=== PATIENT | female | born 1975 | race Caucasian/White ===

== ENCOUNTER → 2018-02-15 | Outpatient (CLI) | payer SELFPAY ==
--- NOTE | 2018-02-15 17:52 | P.STRESS ---
- Stress Test Note Stress Test Results/Findings: Exam Performed: stress test Exam Date: 02/15/18 Reason for Exam: Chest Pain Height: 5 ft Weight: 57.153 kg Protocol: Jairo Stage: 3 Duration of Exercise: 9:30 Resting Heart Rate: 77 Resting Blood Pressure: 115/76 Maximum Achieved Heart Rate: 166 Maximum Achieved Blood Pressure: 151/74 85% PMHR: 150 100% PMHR: 176 METS: 11.1 Technologist Comment: Stress Test Results/Findings: This is a 42-year-old female with history of operations smoking being evaluated for symptoms of chest pain. Stress data Jose baseline EKG showed sinus rhythm with normal MD interval and QRS duration. Blood pressure at rest is 115/76 with a pulse rate of 77. Patient walked on the Jairo protocol for 9 minutes and 30 seconds achieving a maximal heart rate of 166 with a blood pressure 135/74. EKGs taken during and after the exercise did not reveal any significant changes to suggest ischemia. Final impression: #1. Negative stress test #2. Excellent exercise capacity # 3. No arrhythmias detected #4 patient did not express any chest pain.
--- NOTE | 2018-02-20 10:32 | EST ---
Stress Test Results/Findings: Exam Performed: stress test Exam Date: 02/15/18 Reason for Exam: Chest Pain Height: 5 ft Weight: 57.153 kg Protocol: Jairo Stage: 3 Duration of Exercise: 9:30 Resting Heart Rate: 77 Resting Blood Pressure: 115/76 Maximum Achieved Heart Rate: 166 Maximum Achieved Blood Pressure: 151/74 85% PMHR: 150 100% PMHR: 176 METS: 11.1 Technologist Comment: Stress Test Results/Findings: This is a 42-year-old female with history of operations smoking being evaluated for symptoms of chest pain. Stress data Jose baseline EKG showed sinus rhythm with normal AR interval and QRS duration. Blood pressure at rest is 115/76 with a pulse rate of 77. Patient walked on the Jairo protocol for 9 minutes and 30 seconds achieving a maximal heart rate of 166 with a blood pressure 135/74. EKGs taken during and after the exercise did not reveal any significant changes to suggest ischemia. Final impression: #1. Negative stress test #2. Excellent exercise capacity # 3. No arrhythmias detected #4 patient did not express any chest pain. SHAINA
== END | disposition home or self-care (01) ==
LOC: RADNMMAIN 10:36
PROVIDERS: ATTEND Family Medicine
DX: R07.89 Other chest pain (principal); R10.13 Epigastric pain
CPT/HCPCS: 93017

== ENCOUNTER → 2020-03-25 | Outpatient (CLI) | payer BC | END | disposition home or self-care (01) | LOC: LABWHC1 09:15 | PROVIDERS: ATTEND Family Medicine | DX: Z20.89 Contact with and (suspected) exposure to other communicable diseases (principal) | CPT/HCPCS: U0003; C9803 ==

== ENCOUNTER → 2021-02-28 | Outpatient (CLI) | payer BC ==
--- NOTE | 2021-03-01 07:54 | CT ---
EXAMINATION TYPE: CT abdomen pelvis w con DATE OF EXAM: 02/28/2021 COMPARISON: None HISTORY: Lower abdominal pain LT side, radiating to front. CT DLP: 447.10 mGycm CONTRAST: CT scan of the abdomen and pelvis is performed with Oral Contrast and with IV Contrast, patient injec miguel with 100 mL of Isovue 300. FINDINGS: LUNG BASES-: No visible nodule. No infiltrate. LIVER/GB: No calcified gallstones. No space occupying hepatic lesion. Biliary tree is of normal ca liber. PANCREAS: No inflammation. No distinct mass. SPLEEN: No splenic enlargement. No lesion seen. ADRENALS: No nodule. No thickening. KIDNEYS/BLADDER: No hydronephrosis. No nephrolithiasis. Renal cystic changes noted. Urinary bladder grossly unremarkable. BOWEL: Normal appendix. Normal bowel caliber. No inflammation. GENITAL ORGANS: No gross abnormality. LYMPH NODES: No greater than 1cm abdominal or pelvic lymph nodes are appreciated. AORTA: No significant abnormality. OSSEOUS STRUCTURES: No significant abnormality is seen. OTHER: No significant additional abnormality is seen. IMPRESSION: 1. No distinct abnormality to account for the patient's symptoms.
== END | disposition home or self-care (01) ==
LOC: RADCTMAIN 16:31
PROVIDERS: ATTEND Family Medicine
DX: R10.30 Lower abdominal pain, unspecified (principal)
CPT/HCPCS: 74177; Q9967

== ENCOUNTER 2021-04-13 08:17 | Day surgery (SDC) | payer BC ==
[2021-04-11 13:25] VITALS: BMI 27.3
[~2021-04-13 08:17] MED LIST: LACTATED RINGERS 1,000 ML IV SCH
[2021-04-13] MEDS ORDERED: LIDOCAINE 1% (10MG/ML) FOR IV START INTRADERMA ONE (09:10)
[2021-04-13 09:24] VITALS: RESP 16; TEMP 97.6
[2021-04-13] MEDS ORDERED: LIDOCAINE 1% INJ 10MG/ML (20 ML MDV) ONE (09:30)
[2021-04-13] MEDS ORDERED: PROPOFOL 10 MG/ML 20 ML VIAL IV ONE (09:30)
--- NOTE | 2021-04-13 09:55 | P.PCN ---
Date of Procedure: 04/13/21 Procedure(s) Performed: BRIEF HISTORY: Patient is a 46-year-old pleasant female scheduled for an elective colonoscopy as a part of evaluation of left sided abdominal pain for the last 6 weeks duration. PROCEDURE PERFORMED: Colonoscopy and polypectomy. PREOPERATIVE DIAGNOSIS: Left-sided abdominal pain of 6 weeks duration. IV sedation per Anesthesia. PROCEDURE: After informed consent was obtained, the patient, was brought into the endoscopy unit. IV sedation was administered by Anesthesia under continuous monitoring. Digital rectal examination was normal. Initially the Olympus CF-160 flexible video pediatric colonoscope was then inserted in the rectum, gradually advanced into the cecum with [id number] difficulty. Careful examination was performed as the scope was gradually being withdrawn. Ileocecal valve and the appendiceal orifice were visualized and appeared normal. Prep was exce llent. Mucosa of the cecum had a 5 limited polyp that was removed by snare polypectomy. Rest of, ascending colon, transverse colon, descending colon, sigmoid colon, and rectum appeared normal. Scattered sigmoid diverticulosis seen. Retroflexion was performed in the rectum and no lesions were seen. The patient tolerated the procedure well. IMPRESSION: 5 mm cecal polyp status post polypectomy Moderate sigmoid diverticulosis. RECOMMENDATIONS: Findings of this examination were discussed with the patient is a family. She was advised to follow with the biopsy results and if the biopsy reveals adenoma have a repeat colonoscopy in 5 years. She will continue with a high-fiber diet and fiber supplements a regular basis
[2021-04-13 10:20] VITALS: BP 105/66; PULSE 69
== END 2021-04-13 10:51 | disposition home or self-care (01) ==
LOC: ORWHC2ENDO 08:17
PROVIDERS: ATTEND Internal Medicine Gastroenterology
DX: K57.30 Diverticulosis of large intestine without perforation or abscess without bleeding (principal); D12.0 Benign neoplasm of cecum
CPT/HCPCS: 45385; 88305; J2001; J2704

== ENCOUNTER → 2023-06-14 | Outpatient (CLI) | payer BC ==
[2023-06-14 12:15] VITALS: BP 126/81; PULSE 85; RESP 18; TEMP 98.1
--- NOTE | 2023-06-14 12:27 | P.GSHP ---
History of Present Illness H&P Date: 06/14/23 Shena is a 48 year old white female seen for DR. Colin regarding itching of her left breast. She had a bilateral mammogram on 09-26-22 at [facility] imaging center in [place] which was called negative and repeat in 1 year recommended. She is here today with a complaint of left breast and itching in the nipple area in the past and left breast throbbing after flying. That was April 05, that has resolved. She had a lump under ler left arm in 2002 which was a lipoma. Does not have any new lumps masses or nodules of concern. She does have residual fullness at the site where a lipoma was removed in 2002. Is not complaining of any itching at this time. Never had any periods. 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 pregnancies: none menopause: post menopausal Surgical History: ganglion cyst left wrist right ovarian teratoma lipoma left arm Medical History: low vitamin D low energy Social History: nicotine: as above alcohol: 4-5 drinks/week drugs: none - Constitutional Constitutional: Denies chills, Denies fever - EENT Eyes: denies blurred vision, denies pain Ears: left: tinnitus, deny: decreased hearing Ears, nose, mouth and throat: Denies headache, Denies sore throat - Breasts Breasts: bilateral: as per HPI - Cardiovascular Cardiovascular: Denies chest pain, Denies shortness of breath - Respiratory Respiratory: Denies cough, Denies 7 - Gastrointestinal Gastrointestinal: Denies abdominal pain, Denies diarrhea, Denies nausea, Denies vomiting - Genitourinary (Female) Genitourinary: Denies dysuria, Denies hematuria - Menstruation Menstruation: Reports as per HPI - Musculoskeletal Comment: right hip pain Musculoskeletal: Denies myalgias - Integumentary Comment: left breast itching Integumentary: Reports as per HPI, Reports pruritus - Neurological Neurological: Denies numbness, Denies weakness - Psychiatric Psychiatric: Denies anxiety, Denies depression - Endocrine Endocrine: Reports fatigue - Hematologic/Lymphatic Comment: none - Allergic/Immunologic Allergic/Immunologic: Reports as per HPI Past Medical History Additional Past Medical History / Comment(s): Diverticulitis History of Any Multi-Drug Resistant Organisms: None Reported Additional Past Surgical History / Comment(s): Right Ovarian cyst removal. Right wrist cyst removal. Left axilla cyst removal. skin CA removed from nose Additional Past Anesthesia/Blood Transfusion Reaction / Comment(s): patient "woke up during colonoscopy and felt everything" Past Psychological History: No Psychological Hx Reported Smoking Status: Current some day smoker Past Alcohol Use History: Occasional Past Drug Use History: None Reported - Past Family History Mother Family Medical History: No Reported History Medications and Allergies Home Medications Medication Instructions Recorded Confirmed Type Cholecalciferol [Vitamin D3 (125 125 mcg PO DAILY 06/14/23 06/14/23 History Mcg = 5000 Iu)] Magnesium 200 mg PO DAILY 06/14/23 06/14/23 History Vitamin B Complex 1 each PO DAILY 06/14/23 06/14/23 History buPROPion [Wellbutrin] 75 mg PO DAILY 06/14/23 06/14/23 History Allergies Allergy/AdvReac Type Severity Reaction Status Date / Time No Known Allergies Allergy Verified 06/14/23 12:02 Surgical - Exam - General no distress - Eyes normal ocular movement - ENT no hearing loss - Neck trachea midline - Respiratory normal respiratory effort, clear to auscultation - Cardiovascular Rhythm: regular Heart Sounds: normal: S1, S2 - Abdomen Abdomen: soft, non tender, no guarding, no rigid, no rebound - Integumentary normal turgor - Neurologic no disoriented, no combative - Musculoskeletal normal gait, normal posture - Psychiatric oriented to time, oriented to person, oriented to place, speech is normal, memory intact Breast Exam: BRA: 38DD Inspection: bilateral grade 2 ptosis inspection: right breast: Positional exam no dominant masses or nodules of concern Right axilla: No adenopathy of concern Left breast: Multiple positional exam no dominant masses or nodules of concern Left axilla: No adenopathy of concern, well-healed scar over the prior lipoma was removed with mild prominence Fungal infection under both breast Results Mammogram report reviewed from [facility] from which was read as negative; radiographs are not available Assessment and Plan Assessment: Impression: Itching of the left breast which has resolved Pain of the left breast which has resolved From the center left axilla and site of prior lipoma resection Bilateral mammogram reportedly negative from [facility] Plan: Abstain from caffeine/nicotine/chocolate Bilateral mammogram September 2023 with appointment If itching continues consider appointment with dermatology At this time there is nothing in the breast which would warrant interventional biopsy CC: Dr. Colin
== END ==
LOC: WWCWWP 11:01
PROVIDERS: ATTEND Surgery
DX: Z12.31 Encounter for screening mammogram for malignant neoplasm of breast (principal); F17.210 Nicotine dependence, cigarettes, uncomplicated; L29.9 Pruritus, unspecified; Z86.018 Personal history of other benign neoplasm; Z90.721 Acquired absence of ovaries, unilateral

== ENCOUNTER → 2023-09-10 | Outpatient (CLI) | payer BC ==
--- NOTE | 2023-09-10 17:35 | MM ---
Reason for Exam: Screening (asymptomatic). Patient History: Paternal aunt had ovarian cancer. Risk Values: Maribel 5 year model risk: 0.6%. NCI Lifetime model risk: 6.0%. Tissue Density: The breast tissue is heterogeneously dense. This may lower the sensitivity of mammography. Findings: Analyzed By CAD. Possible subtle distortion centrally in either breast on the CC view, middle depth. This may represent superimposition shadow but further evaluation is recommended. Otherwise, no significant change. Overall Assessment: Incomplete: need additional imaging evaluation, BI-RAD 0 Management: Special View Mammogram of both breasts. Diagnostic Breast Ultrasound of both breasts. Additional views to include spot 3-D CC, 3-D CC rolled, and 3-D lateral views. Targeted bilateral breast ultrasounds if any persisting abnormality. [facility] will attempt to contact patient to return for supplemental views and ultrasound if indicated. Electronically signed and approved by: Laverne Estrada M.D. Radiologist
== END | disposition home or self-care (01) ==
LOC: RADMAMWWP 09:06
PROVIDERS: ATTEND Surgery
DX: Z12.31 Encounter for screening mammogram for malignant neoplasm of breast (principal); Z80.41 Family history of malignant neoplasm of ovary
CPT/HCPCS: 77063; 77067

== ENCOUNTER → 2023-09-14 | Outpatient (CLI) | payer BC ==
--- NOTE | 2023-09-14 10:41 | MM ---
Reason for Exam: Follow-up at short interval from prior study. Last screening mammogram was performed less than 1 month ago. Patient History: Paternal aunt had ovarian cancer. Risk Values: Maribel 5 year model risk: 0.6%. NCI Lifetime model risk: 6.0%. Prior Study Comparison: 09/10/2023 Bilateral MG 3D screening mammo w/cad, [facility]. Tissue Density: The breast tissue is heterogeneously dense. This may lower the sensitivity of mammography. Findings: Analyzed By CAD. Under compression no persistent distortion is evident. Old views and mediolateral views appear unremarkable. No suspicious groups of microcalcifications, spiculated or lobular masses, architectural distortion or other secondary signs of malignancy are mammographically apparent. Overall Assessment: Probably benign, BI-RAD 3 Management: Diagnostic Mammogram of both breasts in 6 months. A negative mammogram report should not preclude additional follow up of suspicious palpable abnormalities. Patient should continue monthly self breast exam. A clinical breast exam by your physician is recommended on an annual basis and results should be correlated with mammographic findings. Electronically signed and approved by: Kenneth Alcaraz D.O. Radiologis
== END | disposition home or self-care (01) ==
LOC: RADMAMWWP 10:10
PROVIDERS: ATTEND Surgery
DX: R92.333 Mammographic heterogeneous density, bilateral breasts (principal)
CPT/HCPCS: 77062; 77066

== ENCOUNTER → 2023-12-12 | Outpatient (CLI) | payer BC | END | disposition home or self-care (01) | LOC: LABWHC1 09:03 | PROVIDERS: ATTEND Family Medicine | DX: R07.89 Other chest pain (principal) | CPT/HCPCS: 36415; 93005 ==

== ENCOUNTER → 2024-05-23 | Outpatient (CLI) | payer BC ==
--- NOTE | 2024-05-23 11:23 | MM ---
Reason for Exam: Follow-up at short interval from prior study. Last screening mammogram was performed 8 month(s) ago. Patient History: Patient has no children. Risk Values: Maribel 5 year model risk: 1.0%. NCI Lifetime model risk: 8.9%. Prior Study Comparison: 09/10/2023 Bilateral MG 3D screening mammo w/cad, [facility]. 09/14/2023 Bilateral MG 3D work up w/cad NAVA, [facility]. Tissue Density: The breasts are heterogeneously dense, which may obscure small masses. Findings: Analyzed By CAD. The pattern is symmetrical. No significant interval changes are evident. No persistent architectural distortion present. No suspicious groups of microcalcifications, spiculated or lobular masses, architectural distortion or other secondary signs of malignancy are mammographically apparent. Overall Assessment: Benign, BI-RAD 2 Management: Screening Mammogram of both breasts in 1 year. A negative mammogram report should not preclude additional follow up of suspicious palpable abnormalities. Patient should continue monthly self breast exam. A clinical breast exam by your physician is recommended on an annual basis and results should be correlated with mammographic findings. Note on Maribel scores and lifetime risk: 1. A Maribel score greater than 3% is considered moderate risk. If this is the case, consider specialist referral to assess eligibility for a risk reducing agent. 2. If overall lifetime risk for the development of breast cancer is 20% or higher, the patient may qualify for future screening with alternating mammogram and breast MRI. [facility], , 05/23/2024 11:20 AM. Electronically signed and approved by: Kenneth Alcaraz D.O. Radiologis
== END | disposition home or self-care (01) ==
LOC: RADMAMWWP 10:42
PROVIDERS: ATTEND Surgery
DX: R92.8 Other abnormal and inconclusive findings on diagnostic imaging of breast
CPT/HCPCS: 77062; 77066

== ENCOUNTER → 2024-06-06 | Outpatient (CLI) | payer BC ==
[2024-06-06 13:57] VITALS: BP 131/88; PULSE 91; RESP 17; TEMP 98.4
--- NOTE | 2024-06-06 14:22 | P.PN ---
Subjective Progress Note Date: 06/06/24 Principal diagnosis: fibrocystic breast changes 06/14/23 Shena is a 48 year old white female seen on 06-14-[address] Colin regarding itching of her left breast. She had a bilateral mammogram on 09-26-22 at [facility] imaging center in [place] which was called negative and repeat in 1 year recommended. She is here today with a complaint of left breast and itching in the nipple area in the past and left breast throbbing after flying. That was April 05, that has resolved. She had a lump under her left arm in 2002 which was a lipoma. Does not have any new lumps masses or nodules of concern. She does have residual fullness at the site where a lipoma was removed in 2002. Is not complaining of any itching at this time. Never had any periods. 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 She had a bilateral mammogram on 05-23-24 which was personally interpreted and was BIRAD 2. The discomfort on the left side has improved. The itching in her breast has resolved. She is not complaining of any new lumps, masses, or nodules of concern in either breast, however she is complaining of swelling in her left axilla at the site of a prior lipoma resection. She noted it about 18 months ago and it has gotten larger. 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 pregnancies: none menopause: post menopausal Surgical History: ganglion cyst left wrist right ovarian teratoma lipoma left arm Medical History: low vitamin D low energy Social History: nicotine: as above alcohol: 4-5 drinks/week drugs: none - Constitutional Constitutional: Denies chills, Denies fever - EENT Eyes: denies blurred vision, denies pain Ears: left: tinnitus, deny: decreased hearing Ears, nose, mouth and throat: Denies headache, Denies sore throat - Breasts Breasts: bilateral: as per HPI - Cardiovascular Cardiovascular: Denies chest pain, Denies shortness of breath - Respiratory Respiratory: Denies cough - Gastrointestinal Gastrointestinal: Denies abdominal pain, Denies diarrhea, Denies nausea, Denies vomiting - Genitourinary (Female) Genitourinary: Denies dysuria, Denies hematuria - Menstruation Menstruation: Reports as per HPI - Musculoskeletal Comment: right hip pain Musculoskeletal: Denies myalgias - Integumentary Comment: left breast itching Integumentary: Reports as per HPI, Reports pruritus - Neurological Neurological: Denies numbness, Denies weakness - Psychiatric Psychiatric: Denies anxiety, Denies depression - Endocrine Endocrine: Reports fatigue - Hematologic/Lymphatic Comment: none - Allergic/Immunologic Allergic/Immunologic: Reports as per HPI Past Medical History Additional Past Medical History / Comment(s): Diverticulitis History of Any Multi-Drug Resistant Organisms: None Reported Additional Past Surgical History / Comment(s): Right Ovarian cyst removal. Right wrist cyst removal. Left axilla cyst removal. skin CA removed from nose Additional Past Anesthesia/Blood Transfusion Reaction / Comment(s): patient "woke up during colonoscopy and felt everything" Past Psychological History: No Psychological Hx Reported Smoking Status: Current some day smoker Past Alcohol Use History: Occasional Past Drug Use History: None Reported - Past Family History Mother Family Medical History: No Reported History Medications and Allergies Home Medications Medication Instructions Recorded Confirmed Type Cholecalciferol [Vitamin D3 (125 125 mcg PO DAILY 06/14/23 06/14/23 History Mcg = 5000 Iu)] Magnesium 200 mg PO DAILY 06/14/23 06/14/23 History Vitamin B Complex 1 each PO DAILY 06/14/23 06/14/23 History buPROPion [Wellbutrin] 75 mg PO DAILY 06/14/23 06/14/23 History Allergies Allergy/AdvReac Type Severity Reaction Status Date / Time No Known Allergies Allergy Verified 06/14/23 12:02 Objective - Vital Signs Vital signs: Vital Signs Temp 98.4 F 06/06/24 13:54 Pulse 91 06/06/24 13:54 Resp 17 06/06/24 13:54 BP 131/88 06/06/24 13:54 Pulse Ox 97 06/06/24 13:54 FiO2 Intake & Output 06/05/24 06/06/24 06/06/24 18:59 06:59 18:59 Weight 65.317 kg - Constitutional General appearance: Present: cooperative - EENT Eyes: Present: EOMI ENT: Present: hearing grossly normal - Neck Neck: Present: normal ROM - Respiratory Respiratory: bilateral: CTA - Cardiovascular Rhythm: regular Heart sounds: normal: S1, S2 - Integumentary Integumentary: Present: normal turgor - Musculoskeletal Musculoskeletal: Present: gait normal - Psychiatric Psychiatric: Present: A&O x's 3, appropriate affect, intact judgment & insight - Additional findings Additional findings: Breast Exam: BRA: 38DD Inspection: bilateral grade 2 ptosis inspection: right breast: multi-positional exam no dominant masses or nodules of concern Right axilla: No adenopathy of concern Left breast: Multiple positional exam no dominant masses or nodules of concern Left axilla: No adenopathy of concern, well-healed scar over the prior lipoma was removed with mild prominence probable recurrance of lipoma Assessment and Plan Assessment: Impression: Itching of the left breast which has resolved Pain of the left breast which has resolved site of lipoma resection with soft tissue fullness Bilateral mammogram 05-23-24 BIRAD 2 Plan: Abstain from caffeine/nicotine/chocolate ultrasound of the left axilla then follow up post the resection of lipoma in 2002 she had some post op pain and numbness it lasted for 6 months CC: Dr. Colin
== END ==
LOC: WWCWWP 13:02
PROVIDERS: ATTEND Surgery
DX: R92.8 Other abnormal and inconclusive findings on diagnostic imaging of breast

== ENCOUNTER → 2024-06-09 | Outpatient (CLI) | payer BC ==
--- NOTE | 2024-06-09 09:01 | USB ---
Reason for Exam: Clinical finding. Patient History: Patient has no children. Risk Values: Maribel 5 year model risk: 1.0%. NCI Lifetime model risk: 8.9%. Technique: Method: Targeted. Prior Study Comparison: 09/10/2023 Bilateral MG 3D screening mammo w/cad, [facility]. 09/14/2023 Bilateral MG 3D work up w/cad N[facility], [facility]. 05/23/2024 Bilateral MG 3D diag mammo w/cad NAVA, [facility]. Findings: The area of palpable concern of the left breast and the axilla of the left breast were scanned. No solid or cystic masses are identified.. Overall Assessment: Negative, BI-RAD 1 Management: Screening Mammogram of both breasts in 1 year. A clinical breast exam by your physician is recommended on an annual basis and results should be correlated with mammographic findings. This exam should not preclude additional follow-up of suspicious palpable abnormalities. Results were given to the patient verbally at the time of exam. [facility], , 06/09/2024 8:54 AM. Electronically signed and approved by: Alberto Hoffmann M.D. Radiologis
== END | disposition home or self-care (01) ==
LOC: RADUSWWP 08:18
PROVIDERS: ATTEND Surgery
DX: N63.32 Unspecified lump in axillary tail of the left breast (principal)

== ENCOUNTER → 2024-06-18 | Outpatient (CLI) | payer BC ==
[2024-06-18 15:16] LABS: Blood Urea Nitrogen 12.5 mg/dL (9.0-27.0); Carbon Dioxide 22.6 mmol/L (21.6-31.8); Chloride 104 mmol/L (96-109); Potassium 4.7 mmol/L (3.5-5.5); Sodium 139 mmol/L (135-145)
[2024-06-18 15:39] LABS: HGB 13.9 g/dL (12.0-15.0); MCH 30.2 pg (27.0-32.0); MCHC 32.3 g/dL (32.0-37.0); MCV 93.5 FL (80.0-97.0); Mean Platelet Volume 11.8 FL (9.5-12.2); NRBC Per 100 WBC 0 X 10*3/uL (0.00-0.01); Platelet Count 275 X 10*3/uL (140-440); RDW 13.9 % (11.5-14.5); WBC 8.03 X 10*3/uL (4.50-10.00)
== END | disposition home or self-care (01) ==
LOC: LABWHC1 08:48
PROVIDERS: ATTEND Internal Medicine
DX: R94.39 Abnormal result of other cardiovascular function study (principal)
CPT/HCPCS: 36415; 80051; 82565; 84520; 85027

== ENCOUNTER 2024-06-26 09:17 | Day surgery (SDC) | payer BC ==
[~2024-06-26 09:17] MED LIST changes: +ALPRAZolam 0.25 MG TAB PO PRN; +ALPRAZolam 0.5 MG TAB PO PRN; +ATORVASTATIN 80 MG TAB PO ONE; +HEPARIN SODIUM,PORCINE (1 ML) 2,500 UNIT in SODIUM CHLORIDE 0.9% 250 ML IRRIGATION PRN; +HEPARIN SODIUM,PORCINE 10,000 UNIT in SODIUM CHLORIDE 0.9% 1,000 ML IRRIGATION PRN; -LACTATED RINGERS 1,000 ML IV SCH; +NITROGLYCERIN SL TABS 0.4 MG TAB SUBLINGUAL PRN
[2024-06-26] MEDS: IV FLUID CONTINUATION 1,000 ML IV ONE (09:31)
[2024-06-26 09:46] VITALS: RESP 16; TEMP 98.9
[2024-06-26] MEDS: SODIUM CHLORIDE 0.9% 1,000 ML in EMPTY BAG 1 BAG IV SCH (09:46)
[2024-06-26] MEDS: ASPIRIN 325 MG TAB PO ONE (09:46)
[2024-06-26] MEDS: MIDAZOLAM 2 MG/2 ML VIAL IVP ONE ×2 (10:28→10:30)
[2024-06-26] MEDS: fentaNYL (PF) 50 MCG/ML 2 ML AMP IVP ONE ×2 (10:28→10:30)
[2024-06-26] MEDS: LIDOCAINE 1% INJ 10MG/ML (20 ML MDV) SQ ONE (10:30)
[2024-06-26] MEDS: VERAPAMIL SYRINGE (5 MG/10 ML) INTRAARTER ONE ×2 (10:32→10:44)
[2024-06-26] MEDS: HEPARIN SODIUM 1,000 UN/ML (10ML VL) IVP ONE (10:46)
[2024-06-26] MEDS: IOPAMIDOL-370 100ML BTL INJ ONE (10:53)
--- NOTE | 2024-06-26 11:11 | P.CARDCATH ---
Description of Procedure: PROCEDURES PERFORMED: Left heart catheterization, bilateral coronary angiography, ultrasound guided arterial access INDICATION:abnormal stress test CONSENT:I have discussed the risks, benefits and alternative therapies for the above-mentioned procedure and for both sedation/analgesia as well as necessary blood product administration, if indicated, as they pertain to this patient. The patient has indicated understanding and acceptance of the risks and procedures discussed. PROCEDURE: After the risks, benefits and alternatives of the above mentioned procedure explained in detail with the patient, informed consent was obtained. Patient was taken to the catheterization lab and prepped and draped in usual fashion. Ultrasound guidance was used to assess for arterial access. 1% lidocaine was used to anesthetize the right ulnar arteryas the ulnar artery appeared to be significantly larger than the right radial artery. A 6-[place] sheath was placed in the right ulnar artery using modified Seldinger technique and ultrasound guidance. Left coronary angiography was performed with a 5- [place] JL 3.0 catheter and right coronary angiography was performed with a 5- [place] FR5 catheter in various views. A 5-[place] FR5 catheter was inserted into the left ventricle and pressure measurements were obtained. The right ulnar sheath was removed and a TR band was placed with hemostasis achieved. The patient tolerated the procedure well. Patient was transported back to the post catheterization holding area in stable condition. Conscious Sedation: Patient was monitored under the direct supervision of myself for conscious sedation using Versed and fentanyl for a total duration of 18 minutes HEMODYNAMICS: aorta: 118/72 LV: 115/5, LVEDP 11 SELECTIVE CORONARY ARTERIOGRAPHY: LEFT MAIN: The left main is a large caliber vessel which bifurcates into the LAD and circumflex. There is no significant stenosis. LEFT ANTERIOR DESCENDING CORONARY ARTERY: LAD is a large caliber vessel which wraps around to the apex. There is a small focal area of mid LAD what appears to be 5% stenosis and otherwise normal. LEFT CIRCUMFLEX CORONARY ARTERY: Left circumflex is a moderate caliber vessel without significant stenosis. RIGHT CORONARY ARTERY: The right coronary artery is a large caliber vessel which gives off a PDA and PLV branch and is the dominant vessel. There is no significant stenosis. FINAL IMPRESSION: 1. Relatively normal coronary arteries as described above other than 5% mid LAD luminal irregularity. 2. Normal left sided filling pressures PLAN: 1. Aggressive risk factor modification per most recent ACC/AHA guidelines. 2. Follow-up in the office in 1-2 weeks.
[2024-06-26 13:58] VITALS: PULSE 84
[2024-06-26 14:58] VITALS: BP 121/77
== END 2024-06-26 14:55 | disposition home or self-care (01) ==
LOC: CATHCVL 09:17
PROVIDERS: ATTEND Internal Medicine
DX: R94.39 Abnormal result of other cardiovascular function study (principal); E78.2 Mixed hyperlipidemia; F17.210 Nicotine dependence, cigarettes, uncomplicated; Z82.49 Family history of ischemic heart disease and other diseases of the circulatory system; Z79.899 Other long term (current) drug therapy
CPT/HCPCS: 93458; 99152; C1769; C1894; C1887; J2250; J2003; J3010; J1644; Q9967

== ENCOUNTER → 2024-07-03 | Outpatient (CLI) | payer BC ==
[2024-07-03 13:15] VITALS: BP 115/58; PULSE 101; RESP 17; TEMP 98.3
--- NOTE | 2024-07-03 13:29 | P.PN ---
Subjective Progress Note Date: 07/03/24 07/03/24 Principal diagnosis: fibrocystic breast changes Shena is a 49 year old white female seen on 06-14-[address] Colin regarding itching of her left breast. She had a bilateral mammogram on 09-26-22 at [facility] in [place] which was called negative and repeat in 1 year recommended. She was seen last year with a complaint of left breast and itching in the nipple area in the past and left breast throbbing after flying. That was April 05, that has resolved. She had a lump under her left arm in 2002 which was thought this was a lipoma however the pathology report revealed accessory breast tissue. She does have residual fullness at the site where a lipoma was removed in 2002. She is not complaining of any itching at this time. Never had any periods. 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 She had a bilateral mammogram on 05-23-24 which was personally interpreted and was BIRAD 2. The discomfort on the left side has improved. The itching in her breast has resolved. She is not complaining of any new lumps, masses, or nodules of concern in either breast, however she is complaining of swelling in her left axilla at the site of a prior lipoma resection. She noted it about 18 months ago and it has gotten larger. She had a left axillary ultrasound on 06-09-24 which did not show any lesions of concern. 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 pregnancies: none menopause: post menopausal Surgical History: ganglion cyst left wrist right ovarian teratoma lipoma left arm Medical History: low vitamin D low energy Social History: nicotine: as above alcohol: 4-5 drinks/week drugs: none - Constitutional Constitutional: Denies chills, Denies fever - EENT Eyes: denies blurred vision, denies pain Ears: left: tinnitus, deny: decreased hearing Ears, nose, mouth and throat: Denies headache, Denies sore throat - Breasts Breasts: bilateral: as per HPI - Cardiovascular Cardiovascular: Denies chest pain, Denies shortness of breath - Respiratory Respiratory: Denies cough - Gastrointestinal Gastrointestinal: Denies abdominal pain, Denies diarrhea, Denies nausea, Denies vomiting - Genitourinary (Female) Genitourinary: Denies dysuria, Denies hematuria - Menstruation Menstruation: Reports as per HPI - Musculoskeletal Comment: right hip pain Musculoskeletal: Denies myalgias - Integumentary Comment: left breast itching Integumentary: Reports as per HPI, Reports pruritus - Neurological Neurological: Denies numbness, Denies weakness - Psychiatric Psychiatric: Denies anxiety, Denies depression - Endocrine Endocrine: Reports fatigue - Hematologic/Lymphatic Comment: none - Allergic/Immunologic Allergic/Immunologic: Reports as per HPI Past Medical History Additional Past Medical History / Comment(s): Diverticulitis History of Any Multi-Drug Resistant Organisms: None Reported Additional Past Surgical History / Comment(s): Right Ovarian cyst removal. Right wrist cyst removal. Left axilla cyst removal. skin CA removed from nose Additional Past Anesthesia/Blood Transfusion Reaction / Comment(s): patient "woke up during colonoscopy and felt everything" Past Psychological History: No Psychological Hx Reported Smoking Status: Current some day smoker Past Alcohol Use History: Occasional Past Drug Use History: None Reported - Past Family History Mother Family Medical History: No Reported History Medications and Allergies Home Medications Medication Instructions Recorded Confirmed Type Cholecalciferol [Vitamin D3 (125 125 mcg PO DAILY 06/14/23 06/14/23 History Mcg = 5000 Iu)] Magnesium 200 mg PO DAILY 06/14/23 06/14/23 History Vitamin B Complex 1 each PO DAILY 06/14/23 06/14/23 History buPROPion [Wellbutrin] 75 mg PO DAILY 06/14/23 06/14/23 History Allergies Allergy/AdvReac Type Severity Reaction Status Date / Time No Known Allergies Allergy Verified 06/14/23 12:02 Objective - Vital Signs Vital signs: Vital Signs Temp 98.3 F 07/03/24 13:13 Pulse 101 H 07/03/24 13:13 Resp 17 07/03/24 13:13 BP 115/58 07/03/24 13:13 Pulse Ox 97 07/03/24 13:13 FiO2 Intake & Output 07/02/24 07/03/24 07/03/24 18:59 06:59 18:59 Weight 65.771 kg - Constitutional General appearance: Present: cooperative - EENT Eyes: Present: EOMI ENT: Present: hearing grossly normal - Neck Neck: Present: normal ROM - Respiratory Respiratory: bilateral: CTA - Cardiovascular Rhythm: regular Heart sounds: normal: S1, S2 - Integumentary Integumentary: Present: normal turgor - Musculoskeletal Musculoskeletal: Present: gait normal - Psychiatric Psychiatric: Present: A&O x's 3, appropriate affect, intact judgment & insight - Additional findings Additional findings: Breast Exam: BRA: [id number] Inspection: bilateral grade 2 ptosis inspection: right breast: multi-positional exam no dominant masses or nodules of concern Right axilla: No adenopathy of concern Left breast: Multiple positional exam no dominant masses or nodules of concern Left axilla: No adenopathy of concern, well-healed scar over the prior lipoma was removed with mild prominence probable recurrance of lipoma 5 cm by 2 cm in size just superior to prior incision Assessment and Plan Assessment: Impression: Itching of the left breast which has resolved Pain of the left breast which has resolved site of lipoma resection with soft tissue fullness Bilateral mammogram 05-23-24 BIRAD 2 Abstain from caffeine/nicotine/chocolate ultrasound of the left axilla done on 06-09-24 BIRAD 1 post the resection of lipoma in 2002 she had some post op pain and numbness it lasted for 6 months Plan: Resection of palpable soft tissue mass left axilla Risk and benefits of the procedure discussed with the patient. Risk include but are not limited to bleeding, infection, reaction to the anesthetic. Additionally she had postoperative numbness and pain following the resection in 2002 and she may again experience this. She understands and wishes to proceed. CC: Dr. Colin
== END ==
LOC: WWCWWP 13:01
PROVIDERS: ATTEND Surgery
DX: R92.8 Other abnormal and inconclusive findings on diagnostic imaging of breast (principal); N60.11 Diffuse cystic mastopathy of right breast; N60.12 Diffuse cystic mastopathy of left breast; N63.32 Unspecified lump in axillary tail of the left breast; G89.18 Other acute postprocedural pain; F17.210 Nicotine dependence, cigarettes, uncomplicated

== ENCOUNTER 2024-07-15 10:27 | Day surgery (SDC) | payer BC ==
[2024-07-14 08:33] VITALS: BMI 28.7
[~2024-07-15 10:27] MED LIST changes: -ALPRAZolam 0.25 MG TAB PO PRN; -ALPRAZolam 0.5 MG TAB PO PRN; -ATORVASTATIN 80 MG TAB PO ONE; -HEPARIN SODIUM,PORCINE (1 ML) 2,500 UNIT in SODIUM CHLORIDE 0.9% 250 ML IRRIGATION PRN; -HEPARIN SODIUM,PORCINE 10,000 UNIT in SODIUM CHLORIDE 0.9% 1,000 ML IRRIGATION PRN; +MIDAZOLAM 2 MG/2 ML VIAL IV PRN; -NITROGLYCERIN SL TABS 0.4 MG TAB SUBLINGUAL PRN; +Pre Op ABX Message 1 EACH MISC MISCELLANE ONE; +SCOPOLAMINE 1 MG/72 HR PATCH TRANSDERM ONE
[2024-07-15] MEDS: IV FLUID CONTINUATION 1,000 ML IV ONE ×2 (11:14→14:12)
[2024-07-15] MEDS: LACTATED RINGERS 1,000 ML IV SCH (11:15)
[2024-07-15] MEDS: ACETAMINOPHEN TAB 500 MG TAB PO PRN (11:16)
[2024-07-15] MEDS: DEXAMETHASONE SOD PHOSPHATE 4 MG/ML 1 ML VIAL IV ONE (11:17)
[2024-07-15] MEDS: HEPARIN SODIUM,PORCINE 5,000 UNIT/ML 1 ML VIAL SQ PRN (11:17)
[2024-07-15] MEDS: ONDANSETRON 4 MG/2 ML VIAL IVP ONE (11:17)
[2024-07-15] MEDS ORDERED: fentaNYL (PF) 50 MCG/ML 2 ML AMP ONE (12:25)
[2024-07-15] MEDS ORDERED: PROPOFOL 10 MG/ML 20 ML VIAL IV ONE (12:25)
[2024-07-15] MEDS ORDERED: MIDAZOLAM 2 MG/2 ML VIAL ONE (12:25)
[2024-07-15] MEDS ORDERED: PHENYLEPHRINE-0.9% NACL SYG 1,000 MCG/10 ML SYRINGE ONE (12:25)
[2024-07-15] MEDS ORDERED: LIDOCAINE 1% INJ 10MG/ML (20 ML MDV) ONE (12:25)
--- NOTE | 2024-07-15 13:15 | P.BCAON ---
Date of Procedure: 07/15/24 Preoperative Diagnosis: Soft tissue fullness left axilla Postoperative Diagnosis: Same Procedure(s) Performed: Excision soft tissue fullness left axilla Anesthesia: RANDY Surgeon: Gabby Horton Estimated Blood Loss (ml): 5 IV fluids (ml): 400 Pathology: other (Tissue left axilla) Condition: stable Disposition: same day Indications for Procedure: Palpable mass left axilla Operative Findings: Probable lipoma left axilla Description of Procedure: The left axilla was prepped and draped in a sterile fashion. An incision was made in the prior axillary incision. This was carried to the superior fullness in the axilla. There appeared to be a lipoma at this site. The surrounding tissue was excised. This was fibrofatty tissue. It was approximately 5 cc x 2 cc in size. The area was well irrigated. After we are sure that hemostasis was attained the tissues were closed using a 3-0 Vicryl suture. This was followed by closure of 4-0 Monocryl of the skin. The patient tolerated the procedure in stable condition. All instrument and sponge counts were correct at the end of the case. The specimen was sent to pathology.
[2024-07-15] MEDS: LIDOCAINE 1% INJ 10MG/ML (20 ML MDV) SQ ONE (13:21)
[2024-07-15 13:43] VITALS: TEMP 97.2
[2024-07-15] MEDS: HYDROmorphone 0.5 MG/0.5 ML SYRINGE IVP PRN (14:09)
[2024-07-15 14:49] VITALS: RESP 16
[2024-07-15 15:04] VITALS: BP 129/80; PULSE 67
== END 2024-07-15 15:38 | disposition home or self-care (01) ==
LOC: OR 10:27
PROVIDERS: ATTEND Surgery
DX: D17.22 Benign lipomatous neoplasm of skin and subcutaneous tissue of left arm (principal); F17.200 Nicotine dependence, unspecified, uncomplicated
CPT/HCPCS: 21555; J2250; J1644; J1100; J2405; J2003; J3010; J2704; J1171; J2371; 88304

== ENCOUNTER → 2024-07-24 | Outpatient (CLI) | payer BC ==
[2024-07-24 11:55] VITALS: BP 122/83; PULSE 103; RESP 16; TEMP 98.3
--- NOTE | 2024-07-24 11:59 | P.BCPO ---
Progress Note - Text Progress Note Date: 07/24/24 Shena is status post resection of soft tissue mass under her left axilla on 07-15-24. Pathology consistent with a lipoma. Examination: Lungs: Clear Heart: Regular rate and rhythm Incision: Clean and dry small seroma at the site Impression: Patient doing well postoperative seroma at the site Plan: Aspiration of seroma Post Op Education - Post Op Education Post Op Education Provided Date: 07/24/24 Path Report - Was patient given path report? Path Report Date Given: 07/24/24
== END ==
LOC: WWCWWP 11:06
PROVIDERS: ATTEND Surgery
DX: L76.34 Postprocedural seroma of skin and subcutaneous tissue following other procedure (principal); Z98.890 Other specified postprocedural states

== ENCOUNTER → 2024-07-29 | Outpatient (CLI) | payer BC ==
--- NOTE | 2024-07-29 08:59 | P.PN ---
Subjective Progress Note Date: 07/29/24 07/29/24 Shena is status post resection of soft tissue mass under her left axilla on 07-15-24. Pathology consistent with a lipoma. On her last visit 40 cc of straw-colored fluid were aspirated from the left axillary site. Examination: Lungs: Clear Heart: Regular rate and rhythm Incision: Clean and dry small seroma at the site Impression: Patient doing well postoperative seroma at the site Plan: Aspiration of seroma After informed consent the area of concern was prepped using alcohol. An 18- gauge needle on a 20 cc syringe was used to aspirate 60 cc of straw-colored fluid. Patient will follow-up in 1 weeks Patient to follow-up sooner if any questions or concerns CC: Dr. Colin
[2024-07-29 09:22] VITALS: BP 107/75; PULSE 85; RESP 17; TEMP 97.7
== END ==
LOC: WWCWWP 08:19
PROVIDERS: ATTEND Surgery
DX: L76.34 Postprocedural seroma of skin and subcutaneous tissue following other procedure (principal); D17.30 Benign lipomatous neoplasm of skin and subcutaneous tissue of unspecified sites; Z98.890 Other specified postprocedural states

== ENCOUNTER → 2024-08-05 | Outpatient (CLI) | payer BC ==
[2024-08-05 08:24] VITALS: BP 108/73; PULSE 88; RESP 17; TEMP 98.3
--- NOTE | 2024-08-05 08:33 | P.PN ---
Subjective Progress Note Date: 08/05/24 08/05/24 Shena is status post resection of soft tissue mass under her left axilla on 07-15-24. Pathology consistent with a lipoma. On her last visit 60 cc of straw-colored fluid were aspirated from the left axillary site. She has been seen at [facility] where an attempted aspiration was performed with minimal fluid however some drained from the site after the needle was placed. She states that after the needle was placed she has had some discomfort and feels it may have gone deeper than normal. She is also complaining of a cordlike sensation in her left axilla Examination: Lungs: Clear Heart: Regular rate and rhythm Incision: Clean and dry small seroma at the site; there appears to be a small cord extending from the area of the axilla Impression: Patient doing well postoperative seroma at the site Plan: Aspiration of seroma After informed consent the area of concern was prepped using alcohol. An 18- gauge needle on a 20 cc syringe was used to aspirate 22 cc of straw-colored fluid. Patient will follow-up in 1 week Appointment with physical therapy regarding the cord in the left axilla Patient to follow-up sooner if any questions or concerns CC: Dr. Colin Objective - Vital Signs Vital signs: Intake & Output 08/04/24 08/05/24 08/05/24 18:59 06:59 18:59 Weight 65.771 kg
== END ==
LOC: WWCWWP 08:08
PROVIDERS: ATTEND Surgery
DX: L76.33 Postprocedural seroma of skin and subcutaneous tissue following a dermatologic procedure (principal)

== ENCOUNTER → 2024-08-19 | Outpatient (CLI) | payer BC ==
--- NOTE | 2024-08-19 09:05 | P.PN ---
Subjective Progress Note Date: 08/19/24 08/19/24 Shena is status post resection of soft tissue mass under her left axilla on 07-15-24. Pathology consistent with a lipoma. She has had a seroma aspirated from the left axilla on 2 occasions. The first postoperative visit 60 cc of straw-colored fluid was aspirated, and the second visit 22 cc of straw-colored fluid was aspirated. She was also seen at [facility] where an attempted aspiration was performed with minimal fluid removed. However she states after the needle was placed there she had some discomfort. She was complaining of a cordlike sensation in her left axilla which has improved at this time. She is following with physical therapy. Examination: Lungs: Clear Heart: Regular rate and rhythm Incision: Clean and dry seroma, the cord which was previously felt is no longer as prominent Impression: Patient doing well postoperative seroma at the site Plan: Nothing to aspirate on today's examination Follow-up physical therapy Follow-up here in 6 months Follow-up sooner any questions or concerns CC: Dr. Colin
== END ==
LOC: WWCWWP 08:04
PROVIDERS: ATTEND Surgery
DX: L76.33 Postprocedural seroma of skin and subcutaneous tissue following a dermatologic procedure (principal)